=== PATIENT | male | born 1970 | race Caucasian/White ===

== ENCOUNTER 2017-04-11 00:09 | Emergency (ER) | payer SELFPAY ==
--- NOTE | 2017-04-11 00:45 | ED NURSING NOTES ---
Clinical Report - Nurses [facility] [place] [address] 04/11/2017 0:09 Patient: ASHLEY RUFFIN TRIAGE Triage time 00:22. Acuity: LEVEL 4. Chief Complaint: RIGHT UPPER TOOTHACHE and CHIPPED TOOTH. --00:28 Brad Luciano R.N. 00:22 04/11/17. BP: 144/106. HR: 88. RR: 16. O2 saturation: 99%. Temp: 97.9 F (oral). Pain level now: 04/11. --00: Brad Luciano R.N. Weight: 102 kg stated. Height/Length: 73 inches Per Patient. BMI: 29.7. --00:27 Brad Luciano R.N. Medications Excedrin Migraine Oral (Tablet 250-250-65 mg) 3 tabs , as needed, last dose 0800. Imitrex Oral (Tablet 100 mg), PRN. --00:25 Brad Luciano R.N. Medication/allergy information source: the patient. --00: Brad Luciano R.N. Allergies Bananas. No Known Drug Allergy. --00:25 Brad Luciano R.N. History Arrived by private vehicle. Historian: patient. Accompanied by family. ( 3 day history of dental pain states analgesic that he is taking does not work. Gum swelling, no fever.). The patient has no dental appointment scheduled. He has had a toothache (right upper canine). 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 PAST MEDICAL HX: Dental caries (extensive decay). Immunizations: up-to-date. SOCIAL HX: Heavy tobacco smoker (cigarette)- less than 1 pack per day. Occasional alcohol use; consumes liquor. History of occasional drug use: marijuana. --00:28 Brad Luciano R.N. PROBLEMS: Sinusitis. Headache. --00:26 Brad Luciano R.N. Interventions ID band on patient. To room. --00:28 Brad Luciano R.N. PHYSICAL ASSESSMENT Ambulatory to room. GENERAL / NEURO / PSYCH: Alert. Oriented X 4. Appears in no acute distress. Appears in pain. HEENT: Dental tenderness. Dental decay. Mucous membranes are pink. RESPIRATORY: Respirations not labored. CVS: Capillary refill less than 2 seconds. SKIN: Skin is warm and dry. Normal skin turgor. --00:29 Brad Luciano R.N. NURSING PROGRESS NOTES Head of bed elevated. Reassurance given. Patient identifiers checked. Call light placed in reach. Side rails up x 1. Bed placed in lowest position. Brakes of bed on. Patient ready for evaluation- chart flagged and ED physician notified. --00:29 Brad Luciano R.N. 01:21 04/11/2017 Penicillin V Potassium PO Tablets 500 mg given. Allergies verified and confirmed 5 rights. --01:21 Brad Luciano R.N. 01:22 04/11/2017 GI COCKTAIL WHITE (Simethicone) PO Oral Suspension 30 mL given. Allergies verified and confirmed 5 rights. --01:22 Brad Luciano R.N. DISPOSITION / DISCHARGE Condition at departure: unchanged. No learning barriers present. Discharge instructions provided and reviewed with the patient. Reviewed medication(s) side effects, precautions, dosing and course information. Prescription(s) given to the patient. Reviewed referral to a dentist. Patient verbalized understanding. Written instructions provided in Persian. The patient was discharged home and accompanied by spouse. He left the Emergency Department ambulatory and via private vehicle. Patient driving. --01:20 Brad Luciano R.N. 01:19 04/11/17. BP: 148/98. HR: 78. RR: 16. O2 saturation: 100%. Temp: 98.5 F. Pain level now: 03/11. --01:20 Brad Luciano R.N. Departure time: :. --01:20 Brad Luciano R.N. Locked/Released at 04/11/2017 1:28 by Brad Luciano R.N.
--- NOTE | 2017-04-11 00:45 | ED CLINICAL REPORT ---
Clinical Report - Physicians/Mid Levels [facility] [address] [place] [address] 04/11/2017 0:09 Patient: ASHLEY RUFFIN Time Seen: 0022; initial patient contact. Arrived- By private vehicle. Historian- patient. HISTORY OF PRESENT ILLNESS Chief Complaint: DENTAL PAIN. This started past few days and is still present and worsening. It was abrupt in onset and has been waxing/waning but is not gone now. Pain described as moderate. The patient has had toothache. (reports also having upset stomach. reports the epigastic area feels like a sharp pain. reports it happened after taking excedrin. no bleeding reported. no black or tarry stools. states it is constant, mild, and does not radiate. no vomiting). Similar symptoms previously: Many times. Recent medical care: Not recently seen/assessed. REVIEW OF SYSTEMS No fever. All systems otherwise negative, except as recorded above. PAST HISTORY See nurses notes. Medications: Excedrin Migraine Oral (Tablet 250-250-65 mg) 3 tabs , as needed, last dose 0800. Imitrex Oral (Tablet 100 mg), PRN. Allergies: Bananas. No Known Drug Allergy. SOCIAL HISTORY Smoker- current status unknown. Alcohol use. History of occasional drug use: marijuana. Is a local resident. ADDITIONAL NOTES The nursing notes have been reviewed. PHYSICAL EXAM Vital Signs: 04/11/2017 00:22 BP: 144/106. HR: 88. RR: 16. O2 saturation: 99%. Temp: 97.9 F. Pain level now: 6/10. Oxygen saturation normal. Appearance: Alert. No acute distress. ENT: Dental decay and tenderness. Ears not normal. Nose abnormal. Pharynx normal. Lips normal. Gums normal. No trismus present. Uvula midline. (no brawney edema). (no brawny edema). Neck: Trachea not midline. Lymphadenopathy. Thyroid not normal. Neck not supple. CVS: Normal heart rate and rhythm. Heart sounds normal. Pulses normal. Respiratory: No respiratory distress. Breath sounds normal. Chest nontender. Abdomen: Soft and nontender. No organomegaly. Skin: Normal skin color. No rash. Normal skin turgor. Extremities: Extremities exhibit normal ROM. Extremities nontender. PROGRESS AND PROCEDURES Course of Care: The patient is a pleasant 47 yo male presenting for evaluation of dental pain. Patient has been evaluated for retropharyngeal abscess, Ludwigs angina, acute necrotizing ulcerative gingivitis, and peritonsillar abscess. The exam findings are not consistent with any of these etiologies. Evidence for dental pain noted on examination. No concern for airway compromise at this time. Patient appears nontoxic. Vital signs are otherwise unremarkable. Do not feel patient is septic at this time. Patient be managed conservatively at this time with antibiotics and nonsteroidal anti-inflammatory medications as tolerated. Patient be instructed to avoid nonsteroidal anti-inflammatory medications if theyre allergic or have intolerances. Did not feel patient needs to be admitted to the hospital or require further emergency department workup/evaluation. Encouraged patient to follow up with the dentist as soon as possible ideally within the next 2 or 3 days. Reviewed risks and benefits of dental block. patient declined offer. Patient has been reevaluated. No evidence of airway compromise. Patient continues to be nontoxic and in no acute distress. I discussed the patient workup, diagnosis, home care, follow-up, and return precautions. All questions answered. Disposition: Discharged. Condition: good. CLINICAL IMPRESSION Oxygen saturation normal. Dental caries (extensive decay) left sided facial pain. INSTRUCTIONS Warnings: CONTROLLED SUBSTANCE WARNINGS. GENERAL WARNINGS: Return or contact your physician immediately if your condition worsens or changes unexpectedly, if not improving as expected, or if other problems arise. Specifically return if pain, vomiting, bleeding, breathing difficulty or fever. Your Current Medications: CONTINUE TAKING THE FOLLOWING MEDICATIONS: Excedrin Migraine Oral : Tablet 250-250-65 mg, 3 tabs, Last: 0800, prn. Imitrex Oral : Tablet 100 mg, PRN. Prescription Medications: Penicillin V 500 mg: take 1 tab orally every 12 hours for 10 days. Dispense twenty (20). No refills. (disp 20 tabs) Oxycodone 5 mg tablets: take 1 orally every 6 hours as needed for pain. No refill. (disp 8 tabs) Follow-up: Return to the emergency department as needed. Follow up with your doctor in three days. Reason for referral: recheck today's concerns. Summary of care provided to patient via paper. Screening today revealed the patient's blood pressure to be in the normal range. The patient should follow up with a primary care provider for blood pressure management. Understanding of the discharge instructions verbalized by patient. (Electronically signed by Eugenio Rice Dr. 04/12/2017 8:53)
--- NOTE | 2017-04-11 00:45 | ED ORDER SUMMARY ---
..... Patient: ASHLEY RUFFIN OrderSheet [facility] VisitID: [id number] [address] [place] [address] 47y, M Registration Date/Time: 04/11/2017 ORDER SHEET Weight: 102.0 kg (stated) Allergies: Bananas, No Known Drug Allergy GENERAL ORDERS: MEDICATION ORDERS: Penicillin V Potassium PO 500 mg (NOW) (00:36 04/11/2017 Deb Hathaway) (1:21 Hola Hayes) GI Cocktail WHITE PO 30 mL (NOW) (00:36 04/11/2017 Deb Hathaway) (1:22 Hola Hayes) IV FLUIDS: ORDER SHEET NOTES: [Electronically signed by Brad Luciano R.N. (04/11/2017)] [Electronically signed by Eugenio Rice Dr. (08:53 04/12/2017)] [Electronically locked/signed by Brad Luciano R.N. (04/11/2017)]
--- NOTE | 2017-04-11 00:45 | ED ORDER SUMMARY ---
..... Patient: ASHLEY RUFFIN OrderSheet [facility] VisitID: [id number] [address] [place] [address] 47y, M Registration Date/Time: 04/11/2017 ORDER SHEET Weight: 102.0 kg (stated) Allergies: Bananas, No Known Drug Allergy GENERAL ORDERS: MEDICATION ORDERS: Penicillin V Potassium PO 500 mg (NOW) (00:36 04/11/2017 Deb Hathaway) (1:21 Hola Hayes) GI Cocktail WHITE PO 30 mL (NOW) (00:36 04/11/2017 Deb Hathaway) (1:22 Hola Hayes) IV FLUIDS: ORDER SHEET NOTES: [Electronically signed by Brad Luciano R.N. (04/11/2017)] [Electronically signed by Eugenio Rice Dr. (08:53 04/12/2017)] [Electronically locked/signed by Brad Luciano R.N. (04/11/2017)]
--- NOTE | 2017-04-11 00:45 | ED NURSING NOTES ---
Clinical Report - Nurses [facility] [place] [address] 04/11/2017 0:09 Patient: ASHLEY RUFFIN TRIAGE Triage time 00:22. Acuity: LEVEL 4. Chief Complaint: RIGHT UPPER TOOTHACHE and CHIPPED TOOTH. --00:28 Brad Luciano R.N. 00:22 04/11/17. BP: 144/106. HR: 88. RR: 16. O2 saturation: 99%. Temp: 97.9 F (oral). Pain level now: 04/11. --00: Brad Luciano R.N. Weight: 102 kg stated. Height/Length: 73 inches Per Patient. BMI: 29.7. --00:27 Brad Luciano R.N. Medications Excedrin Migraine Oral (Tablet 250-250-65 mg) 3 tabs , as needed, last dose 0800. Imitrex Oral (Tablet 100 mg), PRN. --00:25 Brad Luciano R.N. Medication/allergy information source: the patient. --00: Brad Luciano R.N. Allergies Bananas. No Known Drug Allergy. --00:25 Brad Luciano R.N. History Arrived by private vehicle. Historian: patient. Accompanied by family. ( 3 day history of dental pain states analgesic that he is taking does not work. Gum swelling, no fever.). The patient has no dental appointment scheduled. He has had a toothache (right upper canine). 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 PAST MEDICAL HX: Dental caries (extensive decay). Immunizations: up-to-date. SOCIAL HX: Heavy tobacco smoker (cigarette)- less than 1 pack per day. Occasional alcohol use; consumes liquor. History of occasional drug use: marijuana. --00:28 Brad Luciano R.N. PROBLEMS: Sinusitis. Headache. --00:26 Brad Luciano R.N. Interventions ID band on patient. To room. --00:28 Brad Luciano R.N. PHYSICAL ASSESSMENT Ambulatory to room. GENERAL / NEURO / PSYCH: Alert. Oriented X 4. Appears in no acute distress. Appears in pain. HEENT: Dental tenderness. Dental decay. Mucous membranes are pink. RESPIRATORY: Respirations not labored. CVS: Capillary refill less than 2 seconds. SKIN: Skin is warm and dry. Normal skin turgor. --00:29 Brad Luciano R.N. NURSING PROGRESS NOTES Head of bed elevated. Reassurance given. Patient identifiers checked. Call light placed in reach. Side rails up x 1. Bed placed in lowest position. Brakes of bed on. Patient ready for evaluation- chart flagged and ED physician notified. --00:29 Brad Luciano R.N. 01:21 04/11/2017 Penicillin V Potassium PO Tablets 500 mg given. Allergies verified and confirmed 5 rights. --01:21 Brad Luciano R.N. 01:22 04/11/2017 GI COCKTAIL WHITE (Simethicone) PO Oral Suspension 30 mL given. Allergies verified and confirmed 5 rights. --01:22 Brad Luciano R.N. DISPOSITION / DISCHARGE Condition at departure: unchanged. No learning barriers present. Discharge instructions provided and reviewed with the patient. Reviewed medication(s) side effects, precautions, dosing and course information. Prescription(s) given to the patient. Reviewed referral to a dentist. Patient verbalized understanding. Written instructions provided in Yoruba. The patient was discharged home and accompanied by spouse. He left the Emergency Department ambulatory and via private vehicle. Patient driving. --01:20 Brad Luciano R.N. 01:19 04/11/17. BP: 148/98. HR: 78. RR: 16. O2 saturation: 100%. Temp: 98.5 F. Pain level now: 03/11. --01:20 Brad Luciano R.N. Departure time: :. --01:20 Brad Luciano R.N. Locked/Released at 04/11/2017 1:28 by Brad Luciano R.N.
--- NOTE | 2017-04-12 08:53 | ED MAR SUMMARY ---
..... Medication Administration Record [facility] [address] [place] [address] Patient: ASHLEY RUFFIN Visit ID: [id number] 47y, M Weight: 102.0 kg Height/Length: 73 in BMI: 29.7 ALLERGIES: Bananas, No Known Drug Allergy Given 01:04/11/2017 Brad Luciano [place] Medication Administered: PENICILLIN V POTASSIUM [PO], Dose: 500 mg Tablets PO. Medication Ordered: Penicillin V Potassium PO 500 mg (NOW). Given 01:04/11/2017 Brad Luciano [place]. Medication Administered: GI COCKTAIL WHITE [PO] (SIMETHICONE), Dose: 30 mL Oral Suspension PO. Medication Ordered: GI Cocktail WHITE PO 30 mL (NOW).
--- NOTE | 2017-04-12 08:53 | ED MED RECONCILIATION SUMMARY ---
Patient: ASHLEY RUFFIN Medication Reconciliation Report [facility] VisitID: [id number] [address] [place] [address] 47y, M Registration Date/Time: 04/11/2017 Weight: 102.0 kg Height/Length: 73 in. BMI: 29.7 ALLERGIES: Bananas, No Known Drug Allergy The patient's Home Medications are listed below: CONTINUE TAKING THE FOLLOWING MEDICATIONS: Excedrin Migraine Oral (250-250-65 mg) 3 tabs , last dose: 0800 Imitrex Oral (100 mg), PRN The source(s) of the original Home Medication information: patient The following Medications were given to the patient in the Emergency Department: Penicillin V Potassium [PO] PO 500 mg, administered: 04/11/2017 1:21:00 AM GI COCKTAIL WHITE [PO] PO 30 mL, administered: 04/11/2017 1:22:00 AM The following Medications were prescribed to the patient: Penicillin V 500 mg: take 1 tab orally every 12 hours for 10 days. Dispense twenty (20). No refills.(disp 20 tabs) -- Eugenio Rice Dr. Oxycodone 5 mg tablets: take 1 orally every 6 hours as needed for pain. No refill.(disp 8 tabs) -- Eugenio Rice Dr.
--- NOTE | 2017-04-12 08:53 | ED MAR SUMMARY ---
..... Medication Administration Record [facility] [address] [place] [address] Patient: ASHLEY RUFFIN Visit ID: [id number] 47y, M Weight: 102.0 kg Height/Length: 73 in BMI: 29.7 ALLERGIES: Bananas, No Known Drug Allergy Given 01:04/11/2017 Brad Luciano [place] Medication Administered: PENICILLIN V POTASSIUM [PO], Dose: 500 mg Tablets PO. Medication Ordered: Penicillin V Potassium PO 500 mg (NOW). Given 01:04/11/2017 Brad Luciano [place]. Medication Administered: GI COCKTAIL WHITE [PO] (SIMETHICONE), Dose: 30 mL Oral Suspension PO. Medication Ordered: GI Cocktail WHITE PO 30 mL (NOW).
--- NOTE | 2017-04-12 08:53 | ED MED RECONCILIATION SUMMARY ---
Patient: ASHLEY RUFFIN Medication Reconciliation Report [facility] VisitID: [id number] [address] [place] [address] 47y, M Registration Date/Time: 04/11/2017 Weight: 102.0 kg Height/Length: 73 in. BMI: 29.7 ALLERGIES: Bananas, No Known Drug Allergy The patient's Home Medications are listed below: CONTINUE TAKING THE FOLLOWING MEDICATIONS: Excedrin Migraine Oral (250-250-65 mg) 3 tabs , last dose: 0800 Imitrex Oral (100 mg), PRN The source(s) of the original Home Medication information: patient The following Medications were given to the patient in the Emergency Department: Penicillin V Potassium [PO] PO 500 mg, administered: 04/11/2017 1:21:00 AM GI COCKTAIL WHITE [PO] PO 30 mL, administered: 04/11/2017 1:22:00 AM The following Medications were prescribed to the patient: Penicillin V 500 mg: take 1 tab orally every 12 hours for 10 days. Dispense twenty (20). No refills.(disp 20 tabs) -- Eugenio Rice Dr. Oxycodone 5 mg tablets: take 1 orally every 6 hours as needed for pain. No refill.(disp 8 tabs) -- Eugenio Rice Dr.
--- NOTE | 2017-04-12 08:53 | ED DISCHARGE INSTRUCTIONS ---
Patient: ASHLEY RUFFIN General Instructions [facility] VisitID: [id number] [place] [address] 47y, M Registration Date/Time: 04/11/2017 Oxygen saturation normal. Dental caries (extensive decay) left sided facial pain. INSTRUCTIONS Warnings: CONTROLLED SUBSTANCE WARNINGS. GENERAL WARNINGS: Return or contact your physician immediately if your condition worsens or changes unexpectedly, if not improving as expected, or if other problems arise. Specifically return if pain, vomiting, bleeding, breathing difficulty or fever. Your Current Medications: CONTINUE TAKING THE FOLLOWING MEDICATIONS: Excedrin Migraine Oral : Tablet 250-250-65 mg, 3 tabs, Last: 0800, prn. Imitrex Oral : Tablet 100 mg, PRN. Prescription Medications: Penicillin V 500 mg: take 1 tab orally every 12 hours for 10 days. Dispense twenty (20). No refills. (disp 20 tabs) Oxycodone 5 mg tablets: take 1 orally every 6 hours as needed for pain. No refill. (disp 8 tabs) Follow-up: Return to the emergency department as needed. Follow up with your doctor in three days. Reason for referral: recheck today's concerns. Summary of care provided to patient via paper. Screening today revealed the patient's blood pressure to be in the normal range. The patient should follow up with a primary care provider for blood pressure management. Understanding of the discharge instructions verbalized by patient. ADDITIONAL INFORMATION Dental Cavity A dental cavity is a pit or crater in the enamel surface of the tooth. This exposes the sensitive inner layer of the tooth and causes pain. If untreated, the cavity will get bigger and may cause an infection or abscess in the root of the tooth. An infection in the tooth is a much more serious problem and may require a root canal or removal of the entire tooth. The tooth pain may be made worse by drinking hot or cold fluids. It may spread from the tooth to the ear or jaw on the same side. Home Care: Avoid hot and cold foods, and liquids since your tooth may be sensitive to temperature changes. If your tooth is chipped or cracked, or if there is a large open cavity, apply OIL OF CLOVES (available [id number] in drug stores) directly to the tooth to reduce pain. Some pharmacies carry an xpyb-dkl-pjunzzs "toothache kit." This contains oil of cloves and a paste, which can be applied over the exposed tooth to decrease sensitivity. An ice pack on your jaw over the sore area may help to reduce pain. You may use acetaminophen (Tylenol) or ibuprofen (Motrin, Advil) to control pain, unless another pain medicine was prescribed. [ NOTE: If you have liver disease or ever had a stomach ulcer, talk with your doctor before using these medicines.] If you have signs of an infection, an antibiotic will be given. Take it as directed. Follow-Up with your dentist as directed. Although your pain may go away with the treatment given, only a dentist can fully evaluate and treat this problem to prevent further tooth damage. Get Prompt Medical Attention if any of the following occur: Redness or swelling of the face Pain worsens or spreads to the neck Fever over 100.5 F (38C) Unusual drowsiness; headache or stiff neck; weakness or fainting Pus drains from the tooth or gum Difficulty swallowing or breathing Penicillin V Potassium Oral tablet What is this medicine? PENICILLIN V (pen i SILL in V) is a penicillin antibiotic. It is used to treat certain kinds of bacterial infections. It will not work for colds, flu, or other viral infections. How should I use this medicine? Take this medicine by mouth with a full glass of water. Follow the directions on the prescription label. Take your medicine at regular intervals. Do not take your medicine more often than directed. Take all of your medicine as directed even if you think your are better. Do not skip doses or stop your medicine early. Talk to your applied computer science professor regarding the use of this medicine in children. While this drug may be prescribed for selected conditions, precautions do apply. What side effects may I notice from receiving this medicine? Side effects that you should report to your doctor or health acute care nurse practitioner as soon as possible: allergic reactions like skin rash or hives, swelling of the face, lips, or tongue breathing problems fever new symptoms of infection redness, blistering, peeling or loosening of the skin, including inside the mouth unusually weak or tired Side effects that usually do not require medical attention (report to your doctor or health acute care nurse practitioner if they continue or are bothersome): diarrhea headache nausea, vomiting sore mouth or tongue stomach upset What may interact with this medicine? control pills methotrexate other antibiotics probenecid some vaccines What if I miss a dose? If you miss a dose, take it as soon as you can. If it is almost time for your next dose, take only that dose. Do not take double or extra doses. Where should I keep my medicine? Keep out of the reach of children. Store at room temperature between 15 and 30 degrees C (59 and 86 degrees F). Keep container tightly closed. Throw away any unused medicine after the expiration date. What should I tell my health care provider before I take this medicine? They need to know if you have any of these conditions: asthma bowel disease, like colitis eczema kidney disease an unusual or allergic reaction to penicillin, cephalosporins, other antibiotics or medicines, foods, tartrazine or other dyes, or preservatives or trying to get breast-feeding What should I watch for while using this medicine? Tell your doctor or health acute care nurse practitioner if your symptoms do not improve. Do not treat diarrhea with over the counter products. Contact your doctor if you have diarrhea that lasts more than 2 days or if it is severe and watery. If you have diabetes, you may get a false-positive result for sugar in your urine. Check with your doctor or health acute care nurse practitioner. control pills may not work properly while you are taking this medicine. Talk to your doctor about using an extra method of control. Oxycodone Hydrochloride, Acetaminophen Oral tablet What is this medicine? ACETAMINOPHEN; OXYCODONE (a set a CECILIA daniela fen; ox i KOE done) is a pain reliever. It is used to treat mild to moderate pain. How should I use this medicine? Take this medicine by mouth with a full glass of water. Follow the directions on the prescription label. Take your medicine at regular intervals. Do not take your medicine more often than directed. Talk to your applied computer science professor regarding the use of this medicine in children. Special care may be needed. Patients over 65 years old may have a stronger reaction and need a smaller dose. What side effects may I notice from receiving this medicine? Side effects that you should report to your doctor or health acute care nurse practitioner as soon as possible: allergic reactions like skin rash, itching or hives, swelling of the face, lips, or tongue breathing difficulties, wheezing confusion light headedness or fainting spells severe stomach pain yellowing of the skin or the whites of the eyes Side effects that usually do not require medical attention (report to your doctor or health acute care nurse practitioner if they continue or are bothersome): dizziness drowsiness nausea vomiting What may interact with this medicine? alcohol antihistamines barbiturates like amobarbital, butalbital, butabarbital, methohexital, pentobarbital, phenobarbital, thiopental, and secobarbital benztropine drugs for bladder problems like solifenacin, trospium, oxybutynin, tolterodine, hyoscyamine, and methscopolamine drugs for breathing problems like ipratropium and tiotropium drugs for certain stomach or intestine problems like propantheline, homatropine methylbromide, glycopyrrolate, atropine, belladonna, and dicyclomine general anesthetics like etomidate, ketamine, nitrous oxide, propofol, desflurane, enflurane, halothane, isoflurane, and sevoflurane medicines for depression, anxiety, or psychotic disturbances medicines for sleep muscle relaxants naltrexone narcotic medicines (opiates) for pain phenothiazines like perphenazine, thioridazine, chlorpromazine, mesoridazine, fluphenazine, prochlorperazine, promazine, and trifluoperazine scopolamine tramadol trihexyphenidyl What if I miss a dose? If you miss a dose, take it as soon as you can. If it is almost time for your next dose, take only that dose. Do not take double or extra doses. Where should I keep my medicine? Keep out of the reach of children. This medicine can be abused. Keep your medicine in a safe place to protect it from theft. Do not share this medicine with anyone. Selling or giving away this medicine is dangerous and against the law. Store at room temperature between 20 and 25 degrees C (68 and 77 degrees F). Keep container tightly closed. Protect from light. This medicine may cause accidental overdose and if it is taken by other adults, children, or pets. Flush any unused medicine down the toilet to reduce the chance of harm. Do not use the medicine after the expiration date. What should I tell my health care provider before I take this medicine? They need to know if you have any of these conditions: brain tumor Crohn's disease, inflammatory bowel disease, or ulcerative colitis drink more than 3 alcohol containing drinks per day drug abuse or addiction head injury heart or circulation problems kidney disease or problems going to the bathroom liver disease lung disease, asthma, or breathing problems an unusual or allergic reaction to acetaminophen, oxycodone, other opioid analgesics, other medicines, foods, dyes, or preservatives or trying to get breast-feeding What should I watch for while using this medicine? Tell your doctor or health acute care nurse practitioner if your pain does not go away, if it gets worse, or if you have new or a different type of pain. You may develop tolerance to the medicine. Tolerance means that you will need a higher dose of the medication for pain relief. Tolerance is normal and is expected if you take this medicine for a long time. Do not suddenly stop taking your medicine because you may develop a severe reaction. Your body becomes used to the medicine. This does NOT mean you are addicted. Addiction is a behavior related to getting and using a drug for a non-medical reason. If you have pain, you have a medical reason to take pain medicine. Your doctor will tell you how much medicine to take. If your doctor wants you to stop the medicine, the dose will be slowly lowered over time to avoid any side effects. You may get drowsy or dizzy. Do not drive, use machinery, or do anything that needs mental alertness until you know how this medicine affects you. Do not stand or sit up quickly, especially if you are an older patient. This reduces the risk of dizzy or fainting spells. Alcohol may interfere with the effect of this medicine. Avoid alcoholic drinks. There are different types of narcotic medicines (opiates) for pain. If you take more than one type at the same time, you may have more side effects. Give your health care provider a list of all medicines you use. Your doctor will tell you how much medicine to take. Do not take more medicine than directed. Call emergency for help if you have problems breathing. The medicine will cause constipation. Try to have a bowel movement at least every 2 to 3 days. If you do not have a bowel movement for 3 days, call your doctor or health acute care nurse practitioner. Do not take Tylenol (acetaminophen) or medicines that have acetaminophen with this medicine. Too much acetaminophen can be very dangerous. Many nonprescription medicines contain acetaminophen. Always read the labels carefully to avoid taking more acetaminophen. You have been given the following additional information: Dental Cavity Penicillin V Potassium Oral tablet Oxycodone Hydrochloride, Acetaminophen Oral tablet (Electronically signed by Eugenio Rice Dr. 04/12/2017 8:53)
--- NOTE | 2017-04-12 08:53 | ED DISCHARGE INSTRUCTIONS ---
Patient: ASHLEY RUFFIN General Instructions [facility] VisitID: [id number] [place] [address] 47y, M Registration Date/Time: 04/11/2017 Oxygen saturation normal. Dental caries (extensive decay) left sided facial pain. INSTRUCTIONS Warnings: CONTROLLED SUBSTANCE WARNINGS. GENERAL WARNINGS: Return or contact your physician immediately if your condition worsens or changes unexpectedly, if not improving as expected, or if other problems arise. Specifically return if pain, vomiting, bleeding, breathing difficulty or fever. Your Current Medications: CONTINUE TAKING THE FOLLOWING MEDICATIONS: Excedrin Migraine Oral : Tablet 250-250-65 mg, 3 tabs, Last: 0800, prn. Imitrex Oral : Tablet 100 mg, PRN. Prescription Medications: Penicillin V 500 mg: take 1 tab orally every 12 hours for 10 days. Dispense twenty (20). No refills. (disp 20 tabs) Oxycodone 5 mg tablets: take 1 orally every 6 hours as needed for pain. No refill. (disp 8 tabs) Follow-up: Return to the emergency department as needed. Follow up with your doctor in three days. Reason for referral: recheck today's concerns. Summary of care provided to patient via paper. Screening today revealed the patient's blood pressure to be in the normal range. The patient should follow up with a primary care provider for blood pressure management. Understanding of the discharge instructions verbalized by patient. ADDITIONAL INFORMATION Dental Cavity A dental cavity is a pit or crater in the enamel surface of the tooth. This exposes the sensitive inner layer of the tooth and causes pain. If untreated, the cavity will get bigger and may cause an infection or abscess in the root of the tooth. An infection in the tooth is a much more serious problem and may require a root canal or removal of the entire tooth. The tooth pain may be made worse by drinking hot or cold fluids. It may spread from the tooth to the ear or jaw on the same side. Home Care: Avoid hot and cold foods, and liquids since your tooth may be sensitive to temperature changes. If your tooth is chipped or cracked, or if there is a large open cavity, apply OIL OF CLOVES (available [id number]-[id number] in drug stores) directly to the tooth to reduce pain. Some pharmacies carry an [id number]-yto-[id number] "toothache kit." This contains oil of cloves and a paste, which can be applied over the exposed tooth to decrease sensitivity. An ice pack on your jaw over the sore area may help to reduce pain. You may use acetaminophen (Tylenol) or ibuprofen (Motrin, Advil) to control pain, unless another pain medicine was prescribed. [ NOTE: If you have liver disease or ever had a stomach ulcer, talk with your doctor before using these medicines.] If you have signs of an infection, an antibiotic will be given. Take it as directed. Follow-Up with your dentist as directed. Although your pain may go away with the treatment given, only a dentist can fully evaluate and treat this problem to prevent further tooth damage. Get Prompt Medical Attention if any of the following occur: Redness or swelling of the face Pain worsens or spreads to the neck Fever over 100.5 F (38C) Unusual drowsiness; headache or stiff neck; weakness or fainting Pus drains from the tooth or gum Difficulty swallowing or breathing Penicillin V Potassium Oral tablet What is this medicine? PENICILLIN V (pen i SILL in V) is a penicillin antibiotic. It is used to treat certain kinds of bacterial infections. It will not work for colds, flu, or other viral infections. How should I use this medicine? Take this medicine by mouth with a full glass of water. Follow the directions on the prescription label. Take your medicine at regular intervals. Do not take your medicine more often than directed. Take all of your medicine as directed even if you think your are better. Do not skip doses or stop your medicine early. Talk to your embedded developer regarding the use of this medicine in children. While this drug may be prescribed for selected conditions, precautions do apply. What side effects may I notice from receiving this medicine? Side effects that you should report to your doctor or health social worker palliative care as soon as possible: allergic reactions like skin rash or hives, swelling of the face, lips, or tongue breathing problems fever new symptoms of infection redness, blistering, peeling or loosening of the skin, including inside the mouth unusually weak or tired Side effects that usually do not require medical attention (report to your doctor or health social worker palliative care if they continue or are bothersome): diarrhea headache nausea, vomiting sore mouth or tongue stomach upset What may interact with this medicine? control pills methotrexate other antibiotics probenecid some vaccines What if I miss a dose? If you miss a dose, take it as soon as you can. If it is almost time for your next dose, take only that dose. Do not take double or extra doses. Where should I keep my medicine? Keep out of the reach of children. Store at room temperature between 15 and 30 degrees C (59 and 86 degrees F). Keep container tightly closed. Throw away any unused medicine after the expiration date. What should I tell my health care provider before I take this medicine? They need to know if you have any of these conditions: asthma bowel disease, like colitis eczema kidney disease an unusual or allergic reaction to penicillin, cephalosporins, other antibiotics or medicines, foods, tartrazine or other dyes, or preservatives or trying to get breast-feeding What should I watch for while using this medicine? Tell your doctor or health social worker palliative care if your symptoms do not improve. Do not treat diarrhea with over the counter products. Contact your doctor if you have diarrhea that lasts more than 2 days or if it is severe and watery. If you have diabetes, you may get a false-positive result for sugar in your urine. Check with your doctor or health social worker palliative care. control pills may not work properly while you are taking this medicine. Talk to your doctor about using an extra method of control. Oxycodone Hydrochloride, Acetaminophen Oral tablet What is this medicine? ACETAMINOPHEN; OXYCODONE (a set a CECILIA daniela fen; ox i KOE done) is a pain reliever. It is used to treat mild to moderate pain. How should I use this medicine? Take this medicine by mouth with a full glass of water. Follow the directions on the prescription label. Take your medicine at regular intervals. Do not take your medicine more often than directed. Talk to your embedded developer regarding the use of this medicine in children. Special care may be needed. Patients over 65 years old may have a stronger reaction and need a smaller dose. What side effects may I notice from receiving this medicine? Side effects that you should report to your doctor or health social worker palliative care as soon as possible: allergic reactions like skin rash, itching or hives, swelling of the face, lips, or tongue breathing difficulties, wheezing confusion light headedness or fainting spells severe stomach pain yellowing of the skin or the whites of the eyes Side effects that usually do not require medical attention (report to your doctor or health social worker palliative care if they continue or are bothersome): dizziness drowsiness nausea vomiting What may interact with this medicine? alcohol antihistamines barbiturates like amobarbital, butalbital, butabarbital, methohexital, pentobarbital, phenobarbital, thiopental, and secobarbital benztropine drugs for bladder problems like solifenacin, trospium, oxybutynin, tolterodine, hyoscyamine, and methscopolamine drugs for breathing problems like ipratropium and tiotropium drugs for certain stomach or intestine problems like propantheline, homatropine methylbromide, glycopyrrolate, atropine, belladonna, and dicyclomine general anesthetics like etomidate, ketamine, nitrous oxide, propofol, desflurane, enflurane, halothane, isoflurane, and sevoflurane medicines for depression, anxiety, or psychotic disturbances medicines for sleep muscle relaxants naltrexone narcotic medicines (opiates) for pain phenothiazines like perphenazine, thioridazine, chlorpromazine, mesoridazine, fluphenazine, prochlorperazine, promazine, and trifluoperazine scopolamine tramadol trihexyphenidyl What if I miss a dose? If you miss a dose, take it as soon as you can. If it is almost time for your next dose, take only that dose. Do not take double or extra doses. Where should I keep my medicine? Keep out of the reach of children. This medicine can be abused. Keep your medicine in a safe place to protect it from theft. Do not share this medicine with anyone. Selling or giving away this medicine is dangerous and against the law. Store at room temperature between 20 and 25 degrees C (68 and 77 degrees F). Keep container tightly closed. Protect from light. This medicine may cause accidental overdose and if it is taken by other adults, children, or pets. Flush any unused medicine down the toilet to reduce the chance of harm. Do not use the medicine after the expiration date. What should I tell my health care provider before I take this medicine? They need to know if you have any of these conditions: brain tumor Crohn's disease, inflammatory bowel disease, or ulcerative colitis drink more than 3 alcohol containing drinks per day drug abuse or addiction head injury heart or circulation problems kidney disease or problems going to the bathroom liver disease lung disease, asthma, or breathing problems an unusual or allergic reaction to acetaminophen, oxycodone, other opioid analgesics, other medicines, foods, dyes, or preservatives or trying to get breast-feeding What should I watch for while using this medicine? Tell your doctor or health social worker palliative care if your pain does not go away, if it gets worse, or if you have new or a different type of pain. You may develop tolerance to the medicine. Tolerance means that you will need a higher dose of the medication for pain relief. Tolerance is normal and is expected if you take this medicine for a long time. Do not suddenly stop taking your medicine because you may develop a severe reaction. Your body becomes used to the medicine. This does NOT mean you are addicted. Addiction is a behavior related to getting and using a drug for a non-medical reason. If you have pain, you have a medical reason to take pain medicine. Your doctor will tell you how much medicine to take. If your doctor wants you to stop the medicine, the dose will be slowly lowered over time to avoid any side effects. You may get drowsy or dizzy. Do not drive, use machinery, or do anything that needs mental alertness until you know how this medicine affects you. Do not stand or sit up quickly, especially if you are an older patient. This reduces the risk of dizzy or fainting spells. Alcohol may interfere with the effect of this medicine. Avoid alcoholic drinks. There are different types of narcotic medicines (opiates) for pain. If you take more than one type at the same time, you may have more side effects. Give your health care provider a list of all medicines you use. Your doctor will tell you how much medicine to take. Do not take more medicine than directed. Call emergency for help if you have problems breathing. The medicine will cause constipation. Try to have a bowel movement at least every 2 to 3 days. If you do not have a bowel movement for 3 days, call your doctor or health social worker palliative care. Do not take Tylenol (acetaminophen) or medicines that have acetaminophen with this medicine. Too much acetaminophen can be very dangerous. Many nonprescription medicines contain acetaminophen. Always read the labels carefully to avoid taking more acetaminophen. You have been given the following additional information: Dental Cavity Penicillin V Potassium Oral tablet Oxycodone Hydrochloride, Acetaminophen Oral tablet (Electronically signed by Eugenio Rice Dr. 04/12/2017 8:53)
== END 2017-04-11 01:25 | disposition home or self-care (01) ==
LOC: ED SRH 00:09
DX: K02.9 Dental caries, unspecified (principal); R51 Headache; Z79.82 Long term (current) use of aspirin; Z79.899 Other long term (current) drug therapy; Z91.018 Allergy to other foods